=== PATIENT | female | born 2005 | race Caucasian/White ===

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

== ENCOUNTER 2025-09-09 17:21 | Outpatient (REF) | payer MEDICAID, SELFPAY ==
[2025-09-09 21:07] LABS: Abs Immature Grans 0.01 10^3/uL (0.0-0.06); HCT 35.5 % (36.0-46.0); HGB 12.1 g/dL (11.2-15.7); Immature Grans % 0.2 %; MCH 29.5 pg (27.0-33.0); MCHC 34.1 % (32.0-36.0); MCV 87 fL (80-95); MPV 10.4 fL (8.0-11.0); Platelet Count 240 10^3/uL (130-400); RBC 4.10 10^6/uL (3.93-5.22); RDW 11.6 % (11.7-14.6); RDW-SD 36.8 fL; WBC 5.13 10^3/uL (4.4-10.8)
[2025-09-09 21:15] LABS: Iron 72 ug/dL (50-170)
[2025-09-09 21:42] LABS: Albumin 4.3 g/dL (3.4-5.0); Alkaline Phosphatase 69 U/L (46-116); BUN 14 mg/dL (7-18); Bilirubin, Total 0.3 mg/dL (0.2-1.0); CO2 27.1 mmol/L (21.0-32.0); Calcium 9.2 mg/dL (8.5-10.1); Chloride 104 mmol/L (98-107); Estimated GFR 108.11 (mL/min/1.73m2); Glucose 85 mg/dL (74-106); Potassium 3.6 mmol/L (3.5-5.1); Sodium 140 mmol/L (136-145); Total Protein 8.1 g/dL (6.4-8.2)
[2025-09-09 21:43] LABS: ALT 42 U/L (14-59); AST 31 U/L (15-37); Anion Gap 8.9 mmol/L (3-11); Ferritin 80 ng/mL (8-252); Folate 19.4 ng/mL (8.6-20.0); Vitamin B12 765 pg/mL (193-986)
[2025-09-09 21:50] LABS: Hemoglobin A1C 5.2 % (<5.7)
[2025-09-09 21:55] LABS: C-Reactive Protein < 0.50 mg/dL (<or=0.5)
== END 2025-09-09 17:22 | disposition home or self-care (01) ==
LOC: NCHCN 17:21
PROVIDERS: Visit Provider Physician Assistant
DX: R53.83 Other fatigue (principal); R04.0 Epistaxis; R00.2 Palpitations; R73.9 Hyperglycemia, unspecified
CPT/HCPCS: 80053; 82607; 82728; 82746; 83036; 83540; 85025; 86140

== ENCOUNTER 2025-11-02 10:49 | Emergency (ER) | payer MEDICAID, SELFPAY ==
--- NOTE | 2025-11-02 10:51 | ED.GENADUL_ITS ---
Discharge Plan Disposition Patient Disposition: Home Discharge Details Clinical Impression: Acute pain of right wrist, Localized swelling on right hand Primary Care Provider: Unknown,Unknown ED Provider: Jordan Jacobs Home Meds and New Rx's Prescriptions: Continued multivitamin Tablet 1 tab PO DAILY medroxyprogesterone [Depo-Provera] 150 mg/mL syringe 150 mg IM [id number] Qty: 1 3RF Discharge Instructions Additional Instructions: You were seen in the emergency department for your hand and wrist pain. As we discussed, your x-ray showed no obvious signs of any fractures. Please ice your hand and wrist 20 minutes on 20 to off for the next 24 hours. Please return to the emergency department if your symptoms do not improve or if you have any other concerns. For your pain please take medications as follows: 1. Take acetaminophen (Tylenol), 600 mg every 6 hours [2. Take ibuprofen (Advil), 400 mg every 6 hours.] Stand Alone Forms: Portal Information Discharge Data Discharge Date/Time-TO BE ENTERED AT DEPARTURE: 11/02/25 13:05 HPI General Date/Time Provider Initiated Documentation: 11/02/25 10:50 . HPI Narrative: MDM I am concerned for the possibility of fractures in this patient's hand wrist. She has reassuring shock index. She has equal breath sounds however in the setting of chest trauma we will obtain chest x-ray. She is taking Excedrin so we will treat with acetaminophen. Will reassess following imaging. No laceration to suggest benefit from tetanus immunization. 12:45 PM Radiographs unremarkable. I reassessed the patient. She was still having tenderness of her hypothenar eminence on the right. She had decreased sensation on the ulnar side of her right pinky. 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 I offered the patient a CT scan of her wrist and forearm. Alternatively I advised that I could place her into a removable splint and that she could ice for 20 minutes on 20 minutes off for the next 24 hours in addition to scheduled acetaminophen and ibuprofen. Patient preferred not to undergo CT scan in the emergency department. We discussed that if she had increasing pain or pain that did not improve or persistent limitations in the range of motion she should return to the ED for repeat radiographs and discussion of next steps. She understood her return indications and was discharged with an apparent trial of expectant outpatient management. HPI This is a patient with a history of Depo-Provera use presenting with right hand pain. The patient experienced an incident on the morning of 11/02/2025 at 8:45 AM where her horse collided with her back, causing her to be crushed between the horse and a wall. This resulted in her arm being pinned and her hand becoming swollen and extremely painful. She reports difficulty in moving her wrist, with certain positions causing pain. Additionally, she reports numbness in her pinky finger and most of her ring finger, along with shooting pains when she attempts to move her fingers. The patient is right-handed and works as a dental school bus driver/teacher assistant. She is not overly concerned about her ribs, suspecting only minor bruising. She is scheduled for a radiofrequency turbinate reduction procedure tomorrow at 7 AM in [place]. Her current medications include a multivitamin and Depo- Provera, administered every 3 months. Exam General: Well-appearing in no acute distress speaking in complete sentences. Head: Normocephalic, atraumatic. Eye: Extraocular eye movements intact. No conjunctival injection. No scleral icterus. Ear, nose, mouth, throat: Grossly normal inspection. Normal voice, handling secretions normally. Neck: Trachea midline. Cardiovascular: Well-perfused distal extremities. Respiratory: Nonlabored respiration. Clear lungs bilaterally. Chest wall: No focal segments. Right sided chest wall tenderness. Gastrointestinal: Nondistended abdomen. Musculoskeletal: Right hand Patient has pain and swelling on her hypothenar eminence. Right hand warm well- perfused cap refill less than 2 seconds right fingertips. Patient does have tenderness on palpation of her right ring finger. She has decreased sensation on her right little finger. She has decreased range of motion from her little finger, her ring finger to her middle finger secondarily to pain. She also has ulnar wrist tenderness. She has distal forearm tenderness. She has pain with supination and pronation. She can fully flex and extend at the hand Skin: Normal for age and race, grossly normal temperature and turgor. No acute rash. Neurologic: Alert and appropriate, no apparent acute deficits. GCS 15. Psychiatric: Mood and manner are appropriate. Grooming and personal hygiene are appropriate. Related Data Home Medications ?Medication ?Instructions ?Recorded ?Confirmed medroxyprogesterone 150 mg/mL 150 mg IM [id number] #1 mL 12/10/23 11/02/25 intramuscular syringe (Depo-Provera) multivitamin 1 tab PO DAILY 12/10/2310/19 Previous Rx's ?Medication ?Instructions ?Recorded medroxyprogesterone 150 mg/mL 150 mg IM [id number] #1 mL 12/10/23 intramuscular syringe (Depo-Provera) Allergies Allergy/AdvReac Type Severity Reaction Status Date / Time No Known Allergies Allergy Verified 11/02/25 10:58 General CARMEN: 3 PFSH All Active Problems (Updated 11/02/25 @ 12:49 by Jordan Jacobs MD) Localized swelling on right hand (Acute) Acute pain of right wrist (Acute) Hypermobility syndrome (Acute) Labral tear of right hip joint (Acute) Uses Depo-Provera as primary control method (Acute) Narcolepsy and cataplexy (Acute) Medical History (Updated 11/02/25 @ 12:49 by Jordan Jacobs MD) Hypothyroidism Encounter for IUD removal Vaginal discharge Pelvic pain IUD surveillance (06/19/23) Nikhilena Migraines Asthma Anemia Social History (Updated 06/12/23 @ 09:08 by Melisa Reyes NP) Smoking/Tobacco Use Status: Never Smoking risk assessment performed?: Yes Alcohol Intake: never Drug use: Never Substance use type: does not use Sexually active: Yes Do you think of yourself as: straight/heterosexual Current gender identity: female What type of physical activity do you participate in: regular exercise Duration: 45-60 minutes/day Frequency: 3-4 times per week Seatbelt use: always Helmet use: Yes Do you feel safe in your relationship?: Yes Female Reproductive History Menstrual control method: progestin IUCD History History 0 Para Hx # Term Pregnancies Multiple births Hx # Pregnancies Ectopic pregnancies AB induced Hx Number of Living Children AB spontaneous
[2025-11-02 10:53] VITALS: BP 128/76; PULSE 78; RESP 16; TEMP 36.7; O2SAT 98
--- NOTE | 2025-11-02 11:00 | DI.RAD_ITS ---
Exam(s) XR CHEST 2V PA LATERAL EXAM: XR CHEST 2V PA LATERAL CLINICAL HISTORY: Right-sided chest pain TECHNIQUE: 2D digital imaging was performed of the chest. Two images were obtained. PA and lateral views were obtained. COMPARISON: CR XR T SPINE AP/LAT/SWIMMERS from 12/31/2020 FINDINGS: MEDIASTINUM: Normal. HEART: Normal. PULMONARY VASCULATURE: Normal. LUNGS: Clear. PLEURAL SPACE: No pleural effusion or pneumothorax. BONE:Within normal limits for the patient's age. OTHER FINDINGS:Normal. IMPRESSION: No acute pulmonary findings. DATA REPOSITORY: RADIATION DOSE DELIVERED:
--- NOTE | 2025-11-02 11:00 | DI.RAD_ITS ---
Exam(s) XR FOREARM RT EXAM: XR FOREARM RT CLINICAL HISTORY: Right forearm pain. TECHNIQUE: 2D digital imaging was performed of the left forearm. Two views were obtained. AP and lateral views were obtained. COMPARISON: No exams were available for comparison FINDINGS: BONES: No acute fracture is present. No bony destructive lesion is seen. Visualized portion of elbow and wrist joints are unremarkable. SOFT TISSUE: Normal. IMPRESSION: Unremarkable radiographs of the left forearm. DATA REPOSITORY: RADIATION DOSE DELIVERED:
--- NOTE | 2025-11-02 11:00 | DI.RAD_ITS ---
Exam(s) XR WRIST RT COMPLETE EXAM: XR WRIST RT COMPLETE CLINICAL HISTORY: Right wrist pain. TECHNIQUE: 2D digital imaging was performed of the right wrist. Three views were obtained. PA, lateral and oblique views were obtained. COMPARISON: No exams were available for comparison FINDINGS: BONES: No acute fracture is present. No bony destructive lesion is seen. JOINTS: The carpal bones are normally aligned. SOFT TISSUE: Normal. IMPRESSION: Unremarkable radiographs of the right wrist. DATA REPOSITORY: RADIATION DOSE DELIVERED:
--- NOTE | 2025-11-02 11:00 | DI.RAD_ITS ---
Exam(s) XR HAND RT COMPLETE EXAM: XR HAND RT COMPLETE CLINICAL HISTORY: Right hand pain hypothenar eminence. TECHNIQUE: 2D digital imaging was performed of the right hand. Three images were obtained. AP, lateral and oblique views were obtained. COMPARISON: No exams were available for comparison FINDINGS: BONES: No acute fracture is present. No bony destructive lesion is seen. JOINTS: No dislocation present. SOFT TISSUE: Normal. IMPRESSION: Unremarkable radiographs of the right hand. DATA REPOSITORY: RADIATION DOSE DELIVERED:
[2025-11-02] MEDS: Acetaminophen 325 MG TAB 650 MG PO (11:33)
[2025-11-02 13:04] VITALS: BP 107/72; PULSE 90; RESP 16; O2SAT 99
== END 2025-11-02 13:05 | disposition home or self-care (01) ==
PROVIDERS: Emergency Provider Emergency Medicine
DX: M25.531 Pain in right wrist (principal); R22.31 Localized swelling, mass and lump, right upper limb; R07.89 Other chest pain; W22.8XXA Striking against or struck by other objects, initial encounter; Y93.52 Activity, horseback riding
CPT/HCPCS: 99284 ×2; 81025; 71046; 73090; 73110; 73130